=== PATIENT | male | born 1950 | race Asian ===

== ENCOUNTER 2020-01-22 12:24 | Emergency (ER) | payer MEDICARE, OTHER ==
[~2020-01-22] VITALS: Ht 165.1 cm; Wt 64.4 kg
[2020-01-22] MEDS ORDERED: LIDOCAINE 1% HCL (LOCAL ANESTH.) INJ 20ML MDV IJ ONE (13:30)
[2020-01-22] MEDS ORDERED: BACITRACIN TOP OINT 1 UD PKG TOP ONE (13:30)
[2020-01-22] MEDS ORDERED: LIDOCAINE 2% (LOCAL ANESTH.) PF 5ml SDV ONE (14:30)
[2020-01-22] MEDS ORDERED: LIDOCAINE 1% HCL (LOCAL ANESTH.) INJ 20ML MDV ONE (14:33)
[2020-01-22] MEDS ORDERED: TETANUS-DIPTH-ACEL PERTUSSIS 0.5ML SYR Tdap IM ONE (14:45)
[2020-01-22] MEDS ORDERED: cefTRIAXone SOD 1,000 MG VL ONE (15:24)
[2020-01-22] MEDS ORDERED: cefTRIAXone W LIDOCAINE 1 GM IM IM ONE (15:30)
[2020-01-22 16:08] VITALS: BP 138/72
== END 2020-01-22 16:12 | disposition home or self-care (01) ==
LOC: ER 12:24
DX: S61.011A Laceration without foreign body of right thumb without damage to nail, initial encounter (principal); W26.8XXA Contact with other sharp object(s), not elsewhere classified, initial encounter; Y93.89 Activity, other specified; Y92.89 Other specified places as the place of occurrence of the external cause; Y99.8 Other external cause status
CPT/HCPCS: 12002; 73130; 90471; 90715; 96372; 99284; J0696; J2001

== ENCOUNTER 2020-01-24 10:26 | Emergency (ER) | payer MEDICARE ==
[~2020-01-24] VITALS: Ht 165.1 cm; Wt 64.4 kg
[2020-01-24 10:39] VITALS: BP 150/102
[2020-01-24] MEDS ORDERED: cefTRIAXone SOD 1,000 MG VL IM ONE (11:30)
[2020-01-24] MEDS ORDERED: IBUPROFEN 800 MG TAB PO ONE (11:30)
[2020-01-24] MEDS ORDERED: LIDOCAINE 1% HCL (LOCAL ANESTH.) INJ 20ML MDV IJ ONE (11:45)
== END 2020-01-24 11:46 | disposition home or self-care (01) ==
LOC: ER 10:26
DX: S61.011D Laceration without foreign body of right thumb without damage to nail, subsequent encounter (principal); X58.XXXD Exposure to other specified factors, subsequent encounter
CPT/HCPCS: 96372; 99283; J0696; J2001

== ENCOUNTER 2021-02-04 10:35 | Emergency (ER) | payer MEDICARE ==
[~2021-02-04] VITALS: Ht 167.6 cm; Wt 63.5 kg
[2021-02-04] MEDS ORDERED: IOHEXOL 300 MG/ML 100ML BOTTLE IJ ONE (11:23)
[2021-02-04] MEDS ORDERED: ONDANSETRON HCL 4 MG/2 ML VIAL IV ONE (15:30)
[2021-02-04] MEDS ORDERED: HYDROmorphone HCL 2 MG/ML VL IV ONE (15:30)
[2021-02-04 15:54] VITALS: BP 141/75
== END 2021-02-04 15:59 | disposition short-term general hospital (02) ==
LOC: ER 10:35 → EDBD 10:35 → EDUNIT# 10:35 → ER 15:59
DX: S32.031A Stable burst fracture of third lumbar vertebra, initial encounter for closed fracture (principal); S52.502A Unspecified fracture of the lower end of left radius, initial encounter for closed fracture; S52.612A Displaced fracture of left ulna styloid process, initial encounter for closed fracture; R51.9 Headache, unspecified; M54.2 Cervicalgia; E11.9 Type 2 diabetes mellitus without complications; W11.XXXA Fall on and from ladder, initial encounter; Y93.89 Activity, other specified; Y92.89 Other specified places as the place of occurrence of the external cause; Y99.8 Other external cause status
CPT/HCPCS: 70450; 72125; 72132; 73090; 73562; 74177; 93005; 96374; 96375; 99285; J1170; J2405; Q9967

== ENCOUNTER 2021-06-13 12:21 | Inpatient (IN) | payer MEDICARE ==
[~2021-06-13] VITALS: Ht 165.1 cm; Wt 62.4 kg
[2021-06-13 13:53] LABS: Basophils # (auto) 0 10 ^3/uL (0-0.2); Basophils % (auto) 0.3 % (0.0-2.0); Eosinophils # (auto) 0 10 ^3/uL (0-0.8); Eosinophils % (auto) 0.1 % (0.0-7.0); Hematocrit 39.6 % (41.0-53.0); Hemoglobin 13.4 g/dL (13.5-17.5); Lymphocytes # (auto) 0.5 10 ^3/uL (0.4-5.4); Lymphocytes % (auto) 7.3 % (10.0-50.0); Mean Corpuscular Hemoglobin 30.2 pg (28.0-32.0); Mean Corpuscular Hgb Conc. 33.9 g/dL (32.0-36.0); Mean Corpuscular Volume 89.1 fL (80.0-100.0); Monocytes # (auto) 0.3 10 ^3/uL (0-1.3); Monocytes % (auto) 4.2 % (0.0-12.0); Neutrophils # (auto) 5.6 10 ^3/uL (1.6-8.6); Neutrophils % (auto) 88.1 % (37.0-80.0); Nucleated Red Blood Cells % 0.1 %; Red Blood Cells 4.44 10^6/uL (4.5-5.90); Red Cell Distribution Width 14.1 % (11.8-14.3); White Blood Cell 6.4 10^3/uL (4.4-10.8)
[2021-06-13 14:21] LABS: Albumin 3.6 g/dL (3.4-5.0); Calcium 8.2 mg/dL (8.5-10.1); Potassium 3.8 mmol/L (3.5-5.1)
[2021-06-13 14:24] LABS: Bilirubin, Total 0.9 mg/dL (0.2-1.0); Total Protein 6.5 g/dL (6.4-8.2)
[2021-06-13] MEDS ORDERED: KETOROLAC TROMETH 30 MG/ML 1ML VIAL IV ONE (15:00)
[2021-06-13] MEDS ORDERED: SODIUM CHLORIDE 0.9% 1,000 ML IV ONE ×2 (15:00)
[2021-06-13] MEDS ORDERED: TAMSULOSIN HYDROCHLORIDE 0.4 MG CAP PO ONE (15:00)
[2021-06-13] MEDS ORDERED: NITROGLYCERIN 0.4 MG SL TAB SL PRN (15:15)
[2021-06-13] MEDS ORDERED: MORPHINE SULFATE INJECTION 2 MG/ML SYRG IV PRN (15:15)
[2021-06-13] MEDS ORDERED: ONDANSETRON HCL 4 MG/2 ML VIAL IV PRN (18:00)
[2021-06-13] MEDS ORDERED: ACETAMINOPHEN 325 MG TAB PO PRN (18:00)
[2021-06-13] MEDS ORDERED: HYDROcodone-ACET 5/325MG TAB PO PRN (18:00)
[2021-06-13] MEDS ORDERED: MORPHINE SULFATE 4 MG/ML SYR/VIAL IV PRN (18:00)
[2021-06-13] MEDS: SODIUM CHLORIDE 0.9% 1,000 ML IV SCH (18:20)
[2021-06-13 18:29] VITALS: BP 131/68
[2021-06-13 19:10] VITALS: BP 131/68
[2021-06-13 22:00] VITALS: BP 128/70
[2021-06-14 05:00] LABS: Basophils # (auto) 0 10 ^3/uL (0-0.2); Basophils % (auto) 0.5 % (0.0-2.0); Eosinophils # (auto) 0 10 ^3/uL (0-0.8); Eosinophils % (auto) 1.1 % (0.0-7.0); Hematocrit 36.5 % (41.0-53.0); Hemoglobin 12.9 g/dL (13.5-17.5); Lymphocytes # (auto) 1.2 10 ^3/uL (0.4-5.4); Mean Corpuscular Hgb Conc. 35.2 g/dL (32.0-36.0); Mean Corpuscular Volume 87.9 fL (80.0-100.0); Monocytes # (auto) 0.3 10 ^3/uL (0-1.3); Monocytes % (auto) 7.8 % (0.0-12.0); Neutrophils # (auto) 2.7 10 ^3/uL (1.6-8.6); Neutrophils % (auto) 63.6 % (37.0-80.0); Nucleated Red Blood Cells % 0.1 %; Red Blood Cells 4.15 10^6/uL (4.5-5.90); Red Cell Distribution Width 13.9 % (11.8-14.3); White Blood Cell 4.3 10^3/uL (4.4-10.8)
[2021-06-14 05:18] LABS: Albumin 3.2 g/dL (3.4-5.0); BUN/Creatinine Ratio 22.4; Calcium 8.2 mg/dL (8.5-10.1); Potassium 3.8 mmol/L (3.5-5.1)
[2021-06-14 05:21] LABS: Total Protein 5.9 g/dL (6.4-8.2)
[2021-06-14 05:30] VITALS: BP 118/66
[2021-06-14] MEDS: SODIUM CHLORIDE 0.9% 1,000 ML IV SCH ×3 (07:20→17:00)
[2021-06-14 09:00] VITALS: BP 128/62
[2021-06-14 12:30] VITALS: BP 121/68
[2021-06-14 14:35] LABS: BUN/Creatinine Ratio 14.6; Calcium 8.8 mg/dL (8.5-10.1); Potassium 4.1 mmol/L (3.5-5.1)
[2021-06-14] MEDS ORDERED: DEXTROSE (50%) 50ML SYRG IV PRN (15:30)
[2021-06-14 15:46] LABS: Urine Bacteria NONE SEEN /hpf (None Seen); Urine Blood Negative /uL (Negative); Urine Specific Gravity 1.004 (1.001-1.035); Urine WBC 1 /hpf (0 - 3)
[2021-06-14 16:57] VITALS: BP 116/54
[2021-06-14] MEDS: ACCU-CHEK COMFORT CURVE STRIP VI SCH ×2 (17:00→20:32)
[2021-06-14] MEDS ORDERED: ACCU-CHEK COMFORT CURVE STRIP VI SCH (17:00)
[2021-06-14] MEDS: InsuLIN REG 1unit/0.01ml Soln (100units/ml) SC SCH ×2 (17:00→20:34)
[2021-06-14] MEDS ORDERED: InsuLIN REG 1unit/0.01ml Soln (100units/ml) SC SCH (17:00)
[2021-06-14] MEDS ORDERED: TAMSULOSIN HYDROCHLORIDE 0.4 MG CAP PO SCH (18:00)
[2021-06-14 22:00] VITALS: BP 114/67
[2021-06-15 05:00] VITALS: BP 114/64
[2021-06-15 05:57] LABS: Potassium 3.7 mmol/L (3.5-5.1)
[2021-06-15] MEDS: ACCU-CHEK COMFORT CURVE STRIP VI SCH ×2 (05:57→11:30)
[2021-06-15 06:02] LABS: BUN/Creatinine Ratio 18.3; Calcium 8.4 mg/dL (8.5-10.1)
[2021-06-15] MEDS: InsuLIN REG 1unit/0.01ml Soln (100units/ml) SC SCH ×2 (06:04→11:30)
[2021-06-15 08:30] VITALS: BP 125/72
[2021-06-15] MEDS ORDERED: METF-370 PO (11:16)
[2021-06-15 12:30] VITALS: BP 125/65
[2021-06-15 14:46] VITALS: BP 125/65
== END 2021-06-15 15:15 | disposition home or self-care (01) | DRG 694 ==
LOC: ER 12:21 → OVERFLOW 15:04 → WEST WING 17:25
PROVIDERS: ADMIT Internal Medicine; ATTEND Internal Medicine
DX: N13.2 Hydronephrosis with renal and ureteral calculous obstruction (principal); E11.65 Type 2 diabetes mellitus with hyperglycemia; K76.0 Fatty (change of) liver, not elsewhere classified; Z20.822 Contact with and (suspected) exposure to COVID-19; Z79.84 Long term (current) use of oral hypoglycemic drugs
CPT/HCPCS: 36415; 74176; 76775; 80048; 80053; 81001; 82962; 83036; 83690; 85025; 87426; 93005; 96361; 96374; G0378; J1815; J1885; J2405